=== PATIENT | male | born 1975 | race Caucasian/White ===

== ENCOUNTER 2022-12-04 19:29 | Emergency (ER) | payer MEDICAID, SELFPAY ==
[2022-12-04 19:36] VITALS: BP 153/86; PULSE 78; RESP 20; TEMP 36.4; O2SAT 99
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
[2022-12-04 21:38] VITALS: BP 123/88; PULSE 70; RESP 18; TEMP 36.4; O2SAT 96
== END 2022-12-04 21:41 | disposition home or self-care (01) ==
PROVIDERS: Emergency Provider Physician Assistant
DX: S80.11XA Contusion of right lower leg, initial encounter (principal); R60.0 Localized edema; W22.8XXA Striking against or struck by other objects, initial encounter
CPT/HCPCS: 99283; 73590; 99284

== ENCOUNTER 2024-01-29 11:14 | Outpatient (REF) | payer MEDICAID, SELFPAY ==
[2024-01-29 15:17] LABS: Abs Immature Grans 0.02 10^3/uL (0.0-0.06); Absolute Basophil Count 0.06 10^3/uL (0.0-0.2); Absolute Eosinophil Count 0.24 10^3/uL (0.0-0.7); Absolute Lymphocyte Count 1.61 10^3/uL (1.2-3.4); Absolute Monocyte Count 0.42 10^3/uL (0.1-0.8); Absolute Neutrophil Count 2.84 10^3/uL (1.2-6.7); Basophils % 1.2; Eosinophils % 4.6; HCT 48.3 % (40.0-50.0); HGB 17.1 g/dL (13.5-17.5); Immature Grans % 0.4; MCH 32.3 pg (27.0-33.0); MCHC 35.4 % (32.0-36.0); MCV 91 fL (80-95); MPV 9.8 fL (8.0-11.0); Monocytes % 8.1; Neutrophils % 54.7; Platelet Count 244 10^3/uL (130-400); RBC 5.29 10^6/uL (4.36-5.78); RDW 11.8 % (11.8-14.1); RDW-SD 39.6 fL; WBC 5.19 10^3/uL (4.4-10.8)
[2024-01-29 16:32] LABS: ALT 36 U/L (16-63); AST 22 U/L (15-37); Albumin 4.1 g/dL (3.4-5.0); Alkaline Phosphatase 72 U/L (46-116); Anion Gap 10.3 mmol/L (3-11); BUN 15 mg/dL (7-18); Bilirubin, Total 0.6 mg/dL (0.2-1.0); CO2 26.7 mmol/L (21.0-32.0); Calcium 8.7 mg/dL (8.5-10.1); Chloride 105 mmol/L (98-107); Estimated GFR 92.84 (mL/min/1.73m2); Ferritin 149 ng/mL (26-388); Glucose 98 mg/dL (74-106); Potassium 4.2 mmol/L (3.5-5.1); Sodium 142 mmol/L (136-145); Total Protein 7.1 g/dL (6.4-8.2)
[2024-01-29 17:05] LABS: FREE T4 0.94 ng/dL (0.76-1.46)
[2024-02-03 10:39] LABS: Magnesium 2.3 mg/dL (1.8-2.4)
== END 2024-01-29 11:15 | disposition home or self-care (01) ==
LOC: NCHCN 11:14
PROVIDERS: PCP Physician Assistant Medical; Visit Provider Physician Assistant Medical
DX: G47.00 Insomnia, unspecified (principal)
CPT/HCPCS: 80053; 82728; 83735; 84439; 84443; 85025

== ENCOUNTER 2024-06-06 15:27 | Outpatient (REF) | payer MEDICAID, SELFPAY ==
[2024-06-06 19:30] LABS: Calculated LDL 113 mg/dL (<100); Cholesterol 217 mg/dL (<200); HDL Cholesterol 75 mg/dL (40-60); Triglyceride 149 mg/dL (<150)
== END 2024-06-06 15:28 | disposition home or self-care (01) ==
LOC: NCHCN 15:27
PROVIDERS: PCP Physician Assistant Medical; Visit Provider Physician Assistant Medical
DX: E78.89 Other lipoprotein metabolism disorders (principal); Z13.6 Encounter for screening for cardiovascular disorders
CPT/HCPCS: 80061